=== PATIENT | female | born 1940 | race Caucasian/White ===

== ENCOUNTER 2016-05-29 20:34 | Emergency (ER) | payer MEDICARE ==
[2016-05-29] MEDS ORDERED: CEFTRIAXONE 1 GRAM DUPLEX 50 ML IV ONE (21:37)
[2016-05-29] MEDS ORDERED: SULFAMETHOXAZOLE 800 MG/TRIMETHOPRIM 160 MG TABLET ONE (21:38)
[2016-05-29 21:56] LABS: ABSOLUTE NEUTROPHIL COUNT 10.7 K/mm3 (1.8-7.7); BASO % 0.2 % (0.2-1.0); EOS # 0.1 (0.0-0.5); EOS % 0.5 % (0.9-2.9); HEMATOCRIT 39.6 % (37.0-47.0); IMM NEUT # 0.1 K/mm3 (0-0.2); IMM NEUT% 0.5 % (0-1); LYMPH # 0.7 (1.0-4.8); LYMPH % 5.9 % (15-45); MEAN CELL VOLUME 83.2 fl (81.0-99.0); MEAN CORPUSCULAR HEMOGLOBIN 25.2 pg (27.0-31.0); MEAN CORPUSCULAR HGB CONC 30.3 g/dl (33.0-37.0); MEAN PLATELET VOLUME 10.8 fl (7.4-10.4); MONO # 0.8 (0.0-0.8); MONO % 6.6 % (4-12); NEUT % 86.3 % (43-75); PLATELET COUNT 202 K/mm3 (130-400); RED CELL DISTRIBUTION WIDTH 14.3 % (11.5-14.5)
== END 2016-05-29 22:45 | disposition home or self-care (01) ==
LOC: ED 20:34
DX: L03.115 Cellulitis of right lower limb (principal); Z79.899 Other long term (current) drug therapy
CPT/HCPCS: 85025; 99283 ×2; 96365; A9270; J0696